=== PATIENT | female | born 1995 | race Two or more races ===

== ENCOUNTER 2022-01-18 19:17 | Emergency (ER) | payer SELFPAY ==
[~2022-01-18] VITALS: Ht 157.5 cm; Wt 90.7 kg
[2022-01-18 19:31] VITALS: BP_SYST 125
--- NOTE | 2022-01-18 19:35 | NUR ---
DR. STILES TO BEDSIDE AND PATIENT PLACED IN REICH BED TO BE SEEN.
[2022-01-18] MEDS ORDERED: TETRACAINE HCL/PF 0.5% OPHTHALMIC DROPS 4 ML OP ONE (19:45)
--- NOTE | 2022-01-18 20:15 | NUR ---
BILLATERAL JERRI LENSES PLACED FOR EYE IRRIGATION PER DR. STILES' REQUEST. PATIENT TOLERATED WELL.
[2022-01-18] MEDS ORDERED: AMOX-423 PO (20:42)
--- NOTE | 2022-01-18 21:04 | NUR ---
Patient given written and verbal discharge instructions and verbalizes understanding. ER MD discussed with patient the results and treatment provided. Patient in stable condition. ID arm band removed. IV catheter removed intact and dressing applied, no active bleeding. Rx of AMOXICILLIN given. Patient educated on pain management and to follow up with PMD. Pain Scale . Opportunity for questions provided and answered. Medication side effect fact sheet provided.
--- NOTE | 2022-01-18 21:04 | NUR ---
BILATERAL JERRI LENS IRRIGATION FINISHED A THIS TIME. PATIENT AND SO EDUCATED ON DISCHARGE INSTRUCTIONS.
== END 2022-01-18 21:04 ==
LOC: SED 19:17
DX: S40.022A Contusion of left upper arm, initial encounter (principal); H10.213 Acute toxic conjunctivitis, bilateral; Z79.899 Other long term (current) drug therapy; Y04.8XXA Assault by other bodily force, initial encounter; Y93.89 Activity, other specified; Y92.89 Other specified places as the place of occurrence of the external cause; Y99.8 Other external cause status
CPT/HCPCS: 99283